=== PATIENT | female | born 1955 | race Caucasian/White ===

== ENCOUNTER 2021-03-05 08:18 | Day surgery (SDC) | payer SELFPAY ==
[2021-03-03 13:45] VITALS: BMI 21.3
[2021-03-05] MEDS ORDERED: SODIUM CHLORIDE 0.9% P/F 10 ML VIAL IJ ONE ×2 (10:37→12:05)
[2021-03-05] MEDS ORDERED: BACITRACIN 3.5 GM OPTHALMIC OINT TUBE ONE (10:37)
[2021-03-05] MEDS ORDERED: LIDOCAINE 1%/EPI 1:100000 (20 ML MULTI DOSE VIAL) ONE (10:37)
[2021-03-05] MEDS ORDERED: SCOPOLAMINE HYDROBROMIDE 1 PATCH PATCH.TD72 ONE (10:42)
[2021-03-05] MEDS ORDERED: fentaNYL CITRATE 250 MCG/5 ML VIAL ONE (10:47)
[2021-03-05] MEDS ORDERED: ROCURONIUM BROMIDE 50 MG/5 ML SYRINGE ONE ×2 (10:47→12:45)
[2021-03-05] MEDS ORDERED: MIDAZOLAM HCL 2 MG/2 ML SINGLE DOSE VIAL ONE (10:47)
[2021-03-05] MEDS ORDERED: PROPOFOL 20 ML ONE ×2 (10:47)
[2021-03-05] MEDS ORDERED: LIDOCAINE HCL/PF 2% SDV 5ML VIAL ONE (10:48)
[2021-03-05] MEDS ORDERED: HALOPERIDOL LACTATE 5 MG/ML ONE (10:58)
[2021-03-05] MEDS ORDERED: TETRACAINE 0.5% OPHTH SOLN 2 ML BOTTLE ONE (11:09)
[2021-03-05] MEDS ORDERED: EPHEDRINE SULFATE/0.9% NACL/PF 50 MG/10 ML SYRINGE NR ONE (11:24)
[2021-03-05] MEDS ORDERED: SEVOFLURANE 250 ML BTL ONE (12:37)
[2021-03-05] MEDS ORDERED: MINERAL OIL 25 ML OIL ONE ×2 (13:43→14:07)
[2021-03-05] MEDS ORDERED: GUM MASTIC/STORAX/MSAL/ALCOHOL 1 DRP DROPSBTL MC ONE (13:55)
[2021-03-05] MEDS ORDERED: NEOSTIGMINE METHYLSULFATE 0.5 MG/1 ML - 10 ML MDV ONE (14:01)
[2021-03-05] MEDS ORDERED: oxyCODONE HCL 5 MG TABLET PO PRN ×2 (14:40)
[2021-03-05] MEDS ORDERED: PROMETHAZINE HCL 25 MG/1 ML VIAL IVPUSH PRN (14:40)
[2021-03-05] MEDS ORDERED: ONDANSETRON 4 MG/2 ML VIAL IVPUSH PRN (14:40)
[2021-03-05 15:47] VITALS: TEMP 97.7
[2021-03-05] MEDS ORDERED: ONDANSETRON 4 MG/2 ML VIAL ONE (17:37)
[2021-03-05 18:09] VITALS: BP 118/76; PULSE 72
== END 2021-03-05 18:10 | disposition home or self-care (01) ==
LOC: FASU 08:18
PROVIDERS: ATTEND Plastic Surgery
PROC: 080N0ZZ Alteration of Right Upper Eyelid, Open Approach (ICD-10-PCS; 2021-03-05)
PROC: 080P0ZZ Alteration of Left Upper Eyelid, Open Approach (ICD-10-PCS; 2021-03-05)
PROC: 080Q0ZZ Alteration of Right Lower Eyelid, Open Approach (ICD-10-PCS; 2021-03-05)
PROC: 0W060ZZ Alteration of Neck, Open Approach (ICD-10-PCS; principal; 2021-03-05 11:16)
PROC: 080R0ZZ Alteration of Left Lower Eyelid, Open Approach (ICD-10-PCS; 2021-03-05 11:16)
DX: Z41.1 Encounter for cosmetic surgery (principal)
CPT/HCPCS: 94760